=== PATIENT | female | born 1980 ===

== ENCOUNTER 2020-03-15 05:48 | Day surgery (SDC) | payer OTHER ==
[~2020-03-15] VITALS: Ht 160 cm; Wt 72.6 kg
[~2020-03-15 05:48] MED LIST: IRON PO
--- NOTE | 2020-03-15 06:29 | NUR ---
History, Chart, Medications and Allergies reviewed before start of procedure. Patient confirms NPO status and agrees with scheduled surgery. Patient reports completing Chlorhexadine shower X2 prior to admission to hospital.
[2020-03-15 12:16] LABS: BASOPHILS ABSOLUTE AUTO 0.04 K/mm3 (0.00-0.23); BASOPHILS PERCENT AUTO 0 % (0-2); EOSINOPHILS ABSOLUTE AUTO 0.05 K/mm3 (0.00-0.68); EOSINOPHILS PERCENT AUTO 1 % (0-6); Hematocrit 32.2 % (33.0-51.0); Hemoglobin 8.9 g/dL (11.5-16.0); IMMATURE GRAN ABSOLUTE AUTO 0.04 K/mm3 (0.00-0.10); IMMATURE GRAN PERCENT AUTO 0 % (0-1); LYMPHOCYTES ABSOLUTE AUTO 1.16 K/mm3 (0.84-5.20); LYMPHOCYTES PERCENT AUTO 11 % (21-46); MONOCYTES ABSOLUTE AUTO 0.38 K/mm3 (0.16-1.47); MONOCYTES PERCENT AUTO 4 % (4-13); Mean Corpuscular HGB 20.6 pg (26.0-34.0); Mean Corpuscular HGB Conc 27.6 g/dL (31.5-36.5); Mean Corpuscular Volume 75 fL (80-100); Mean Platelet Volume 10.5 fL (9.1-12.4); NEUTROPHILS ABSOLUTE AUTO 9.24 K/mm3 (1.96-9.15); NEUTROPHILS PERCENT AUTO 85 % (41-73); Platelet Count 397 K/mm3 (150-400); RDW Coefficient Variation 19.1 % (11.7-14.2); RDW Standard Deviation 52.1 fL (35.1-46.3); Red Blood Cell Count 4.31 M/mm3 (3.80-5.20); White Blood Cell Count 10.91 K/mm3 (4.00-11.30)
--- NOTE | 2020-03-15 17:33 | NUR ---
SUMMARY NAUSEA AND HEADACHE THIS AFTERNOON WHICH PATIENT FEELS IS FROM [employer]. ICE PACK GIVEN TO PATIENT FOR HEADACHE. PT WISHES TO RECEIVE 1800 DOSE OF TORADOL AND NOT USE ANY FURTHER DOSES OF [employer]. PT WITH SOME RETCHING WHICH RESOLVED AFTER ZOFRAN. AFUA PAD CHANGED X2 SINCE ARRIVED ON FLOOR, SMALL AMOUNT SEROSANGUINOUS VAGINAL DRAINAGE. PT REPOSITIONS SELF SIDE TO SIDE IN BED. PT NOT YET OOB DUE TO NAUSEA
[2020-03-16 04:05] LABS: BASOPHILS ABSOLUTE AUTO 0.04 K/mm3 (0.00-0.23); BASOPHILS PERCENT AUTO 0 % (0-2); EOSINOPHILS ABSOLUTE AUTO 0.02 K/mm3 (0.00-0.68); EOSINOPHILS PERCENT AUTO 0 % (0-6); Hematocrit 28.7 % (33.0-51.0); Hemoglobin 7.8 g/dL (11.5-16.0); IMMATURE GRAN ABSOLUTE AUTO 0.05 K/mm3 (0.00-0.10); IMMATURE GRAN PERCENT AUTO 1 % (0-1); LYMPHOCYTES PERCENT AUTO 16 % (21-46); MONOCYTES PERCENT AUTO 5 % (4-13); Mean Corpuscular HGB 20.3 pg (26.0-34.0); Mean Corpuscular HGB Conc 27.2 g/dL (31.5-36.5); Mean Corpuscular Volume 75 fL (80-100); Mean Platelet Volume 10.2 fL (9.1-12.4); NEUTROPHILS PERCENT AUTO 78 % (41-73); Platelet Count 371 K/mm3 (150-400); RDW Coefficient Variation 19.1 % (11.7-14.2); RDW Standard Deviation 52.1 fL (35.1-46.3); Red Blood Cell Count 3.84 M/mm3 (3.80-5.20); White Blood Cell Count 10.41 K/mm3 (4.00-11.30)
--- NOTE | 2020-03-16 06:09 | NUR ---
SHIFT SUMMARY: ARCELIA IS A&OX4. VSS, NO ACUTE EVENTS OVERNIGHT. CAMMY DC/Amarilis THIS AM. SHE REPORTS ADEQUATE PAIN CONTROL WITH TORADOL. ORA. LAP SITES TO ABDOMEN C/D&I. SMALL AMOUNT DRAINAGE TO AFUA PAD. SHE IS TOLERATING LIQUIDS WELL. SHE USES THE CALL LIGHT APPROPRIATELY. HEMOGLOBIN 7.8 THIS AM FROM 8.9 YESTERDAY, NOTIFIED. PT STATES THAT SHE WAS ANEMIC PRIOR TO SURGERY. SHE IS LYING IN BED WITH THE CALL LIGHT IN REACH. WILL REPORT TO DAY SHIFT RN.
[2020-03-16] MEDS ORDERED: Percocet 5-3251 EACH PO (09:47)
[2020-03-16] MEDS ORDERED: IBUP800 PO (09:48)
--- NOTE | 2020-03-16 10:05 | NUR ---
DISCHARGE NOTE: PATIENT AND SPOUSE WERE EDUCATED ON DISCHARGE INSTRUCTIONS. PATIENT AND SPOUSE VERBALIZED UNDERSTANDING AND HAD NO FURTHER QUESTIONS. PATIENT IS ALERT AND ORIENTED X4 WITH STABLE VITAL SIGNS. PATIENT REPORTS HAVING NO PAIN AT THIS TIME. SHE WILL BE WALKING DOWN TO HER HUSBANDS CAR. PATIENT HAS ALL OF HER BELONGINGS WITH HER. PATIENT WAS VERY PLEASANT AND HAPPY TO BE GOING HOME.
== END 2020-03-16 10:07 | disposition home or self-care (01) ==
LOC: ORSCMMR 05:48 → ORD 07:30 → ORSCMMR 07:30 → ORD 11:00 → ORSCMMR 11:46 → SURS 11:46 → ORSCMMR 03-16 10:07 → SURS 03-16 10:07
PROVIDERS: Obstetrics & Gynecology
PROC: 0UT9FZZ Resection of Uterus, Via Natural or Artificial Opening With Percutaneous Endoscopic Assistance (ICD-10-PCS; principal; 2020-03-15 07:30)
PROC: 0UT7FZZ Resection of Bilateral Fallopian Tubes, Via Natural or Artificial Opening With Percutaneous Endoscopic Assistance (ICD-10-PCS; principal; 2020-03-15 07:30)
DX: N94.89 Other specified conditions associated with female genital organs and menstrual cycle (principal); N92.0 Excessive and frequent menstruation with regular cycle; D25.9 Leiomyoma of uterus, unspecified; N84.0 Polyp of corpus uteri; N80.3 Endometriosis of pelvic peritoneum
CPT/HCPCS: 36415; 85025; 88307; J0171; J0330; J0690; J1200; J1885; J2250; J2405; J2704; J2710; J3010; J7120

== ENCOUNTER 2021-04-14 10:57 | Day surgery (SDC) | payer OTHER ==
[~2021-04-14] VITALS: Ht 160 cm; Wt 68.3 kg
[~2021-04-14 10:57] MED LIST changes: +IBUP800 PO; +Percocet 5-3251 EACH PO
--- NOTE | 2021-04-14 13:16 | NUR ---
04/14/21 1316 [facility]AM VO PULL 1 VIAL DILADID 2MG/2ML. RN DID NOT ADMINISTER MEDICATION-TRANSFERED VIAL TO DR IN PREOP PRIOR TO PROCEDURE. . END NOTE [email or web address] @1300. 04.14.21
--- NOTE | 2021-04-14 13:24 | NUR ---
04/14/21 1323 Vipul Kelly 0.15MG EPI ADDED TO 30ML 0.5% MARCAINE PL TO ACHIEVE SOLUTION OF 1:200,000.
== END 2021-04-14 15:26 | disposition home or self-care (01) ==
LOC: ORSCSDS 10:57
PROVIDERS: Podiatrist Foot & Ankle Surgery
PROC: 0SGH04Z Fusion of Right Tarsal Joint with Internal Fixation Device, Open Approach (ICD-10-PCS; principal; 2021-04-14 12:30)
DX: M19.071 Primary osteoarthritis, right ankle and foot (principal); I10 Essential (primary) hypertension
CPT/HCPCS: A9270; C1713; C1769; J0171; J0690; J1100; J1170; J2250; J2405; J2704; J3010